=== PATIENT | female | born 1970 | race Caucasian/White ===

== ENCOUNTER 2016-09-07 07:19 | Day surgery (SDC) | payer BC ==
[~2016-09-07] VITALS: Ht 170.2 cm; Wt 109.5 kg
[~2016-09-07 07:19] MED LIST: BENA10TA48 PO; CARI350T PO; ERGO500014 PO; GABA-528 PO; HYDR12.58 PO; IBUP-1542 PO; LORA1TAB PO; MAG355OR15 PO; METF500T4 PO; METO-429 PO; OXYC30TA PO; TOPI-44 PO
[2016-09-07 08:11] VITALS: Ht 170.2 cm; Wt 109.5 kg
[2016-09-07] MEDS ORDERED: PROPOFOL 40 ML ONE (08:37)
[2016-09-07] MEDS ORDERED: LIDOCAINE 2% (SDV) 5 ML INJ ONE (08:37)
[2016-09-07 09:35] VITALS: BP 134/75; PULSE 58; RESP 18
--- NOTE | 2016-09-07 10:13 | GILP ---
DATE OF PROCEDURE: 09/07/2016 PROCEDURE: Esophagogastroduodenoscopy. SURGEON: Brandon Chacon MD PREOPERATIVE DIAGNOSIS: A patient presenting with a history of chronic abdominal pain unresponsive to omeprazole. Rule out peptic ulcer disease, neoplasm, etc. POSTOPERATIVE DIAGNOSES: 1. Multiple antral erosions. 2. Minimal duodenitis. 3. Multiple gastric body polyps. Biopsies done as follows. DESCRIPTION OF PROCEDURE: After the informed written consent was obtained, the patient was asked to lie on the left lateral side. Intravenous anesthesia was given by anesthesiologist, Dr. Farias. Whe n the patient became somnolent, the Olympus video upper endoscope was introduced into the oropharynx , then into the esophagus. Esophagus showed normal mucosal pattern with no ulcer, no neoplasm. Gas tric body showed multiple polyps at least 3 or 4 of them were noted. Multiple biopsies were obtaine d. The antrum showed evidence of several erosions, they are measuring about 3 mm to 6 mm in size. Multiple biopsies were obtained from the antrum, lesser curvature, and the fundus and the cardia to rule out H. pylori infection. Minimal erythema noted in the postbulbar area of the duodenum, but no ulcer, no other abnormality detected in the duodenum. Scope at this time was withdrawn. No additi onal abnormalities detected and the procedure was terminated. PLAN: Recommend increase the omeprazole to 20 mg p.o. b.i.d. and wait for the pathology report for the H. pylori infection. Dictated By: BRANDON GARCIA/GENA Conf#: [id number] DID#: [id number] CC: JAN ALAS MD; BRANDON CHACON MD;*End*
== END 2016-09-07 12:11 | disposition home or self-care (01) ==
LOC: GIL 07:19
PROVIDERS: ATTEND Internal Medicine Gastroenterology
DX: K29.50 Unspecified chronic gastritis without bleeding (principal); K29.80 Duodenitis without bleeding; K31.7 Polyp of stomach and duodenum; E11.9 Type 2 diabetes mellitus without complications; I10 Essential (primary) hypertension; E66.01 Morbid (severe) obesity due to excess calories; Z68.37 Body mass index [BMI] 37.0-37.9, adult
CPT/HCPCS: 43239; 84703; 88305; 88312; Z7610

== ENCOUNTER 2016-09-15 02:33 | Inpatient (IN) | payer BC ==
[~2016-09-15] VITALS: Ht 167.6 cm; Wt 105.4 kg
[~2016-09-15 02:33] MED LIST changes: -BENA10TA48 PO; -ERGO500014 PO; -GABA-528 PO; -HYDR12.58 PO; -IBUP-1542 PO; -MAG355OR15 PO; -TOPI-44 PO
--- NOTE | 2016-09-15 03:24 | ERA ---
ER Documentation Chief Complaint Date/Time DATE: 09/15/16 TIME: 03:24 Chief Complaint woke up with chest pain/sob x 1 hour ago HPI The patient is a 45-year-old female,presenting to the ER because of sternal chest pain about an hour prior to arrival that wake her up from sleeping. . She had similar symptoms previously, but not with this intensity. She also complained of associated dyspnea. She denies chest pain with exertion or vomiting or diaphoresis. He denies abdominal pain, vomiting, dysuria, diarrhea. She does not smoke does not drink Past medical history: Hypertension, diabetes mellitus, anxiety, chronic neck pain, chronic back pain Past surgical history: Breast implant and left ulnar surgery ROS All systems reviewed and are negative except as per history of present illness. Medications Home Meds Reported Medications Oxycodone Hcl* (IR) (Oxycodone Hcl*) 30 Mg Tablet, 30 MG PO Q12 Y for PAIN, TAB 11/17/15 Lorazepam* (Lorazepam*) 1 Mg Tablet, 1 MG PO BID Y for AGITATION/ANXIETY, TAB 11/17/15 Metformin* (Glucophage*) 500 Mg Tab, 500 MG PO BID 11/17/15 Metoprolol Tartrate* (Lopressor*) 50 Mg Tab, 50 MG PO BID 11/17/15 Carisoprodol* (Soma*) 350 Mg Tablet, 350 MG PO Q8H Y for MUSCLE SPASMS, TAB 08/20/15 Allergies Allergies: Coded Allergies: diphenhydramine (Verified Allergy, Unknown, sob, 09/15/16) PMhx/Soc History of Surgery: Yes (BREAST IMPLANTS, ULNAR NERVE SX) Anesthesia Reaction: No Hx Neurological Disorder: No Hx Respiratory Disorders: No Hx Cardiac Disorders: Yes (HTN) Hx Psychiatric Problems: Yes (ANXIETY) Hx Miscellaneous Medical Probl: No Hx Alcohol Use: No Hx Substance Use: No Hx Tobacco Use: No Physical Exam Vitals Vital Signs Date Time Temp Pulse Resp B/P Pulse Ox O2 Delivery O2 Flow Rate FiO2 09/15/16 03:20 97.9 58 20 132/99 100 Room Air 09/15/16 02:36 97.9 62 20 138/84 99 Physical Exam Const: No acute distress. Head: Atraumatic. Eyes: Normal Conjunctiva. ENT: Normal External Ears, Nose and Mouth. Neck: Full range of motion. No meningismus. Resp: Clear to auscultation bilaterally. Cardio: Regular rate and rhythm, no murmurs. Abd: Soft, non distended, normal bowel sounds, non tender. Skin: No petechiae or rashes. Back: No midline or flank tenderness. Ext: No cyanosis, or edema. Neur: Awake and alert. No focal deficit Psych: Normal Mood and Affect. Result Diagram: 09/15/16 0330 09/15/16 0330 Results 24 hrs Laboratory Tests Test 09/15/16 03:30 09/15/16 04:09 Activated Partial Thromboplast Time 25.1Sec Alanine Aminotransferase (ALT/SGPT) 25IU/L Albumin 4.3g/dl Albumin/Globulin Ratio 1.34 Alkaline Phosphatase 76IU/L Anion Gap 20 Aspartate Amino Transf (AST/SGOT) 12IU/L Basophils # 0.110^3/ul Basophils % 0.6% Blood Urea Nitrogen 12mg/dl Calcium Level 9.3mg/dl Carbon Dioxide Level 26mmol/L Chloride Level 104mmol/L Creatinine 0.80mg/dl Direct Bilirubin 0.00mg/dl Eosinophils # 0.410^3/ul Eosinophils % 3.7% Globulin 3.20g/dl Glucose Level 136mg/dl Hematocrit 38.1% Hemoglobin 11.3g/dl INR International Normalized Ratio 0.97 Indirect Bilirubin 0.1mg/dl Lipase 121U/L Lymphocytes # 2.910^3/ul Lymphocytes % 29.1% Mean Corpuscular Hemoglobin 21.7pg Mean Corpuscular Hemoglobin Concent 29.7g/dl Mean Corpuscular Volume 73.1fl Mean Platelet Volume 10.0fl Monocytes # 0.710^3/ul Monocytes % 6.7% Neutrophils # 6.010^3/ul Neutrophils % 59.4% Nucleated Red Blood Cells # 0.010^3/ul Nucleated Red Blood Cells % 0.0/100WBC Platelet Count 19862^3/UL Potassium Level 3.8mmol/L Prothrombin Time 12.9Sec Prothrombin Time Ratio 1.0 Red Blood Count 5.2110^6/ul Red Cell Distribution Width 15.5% Sodium Level 146mmol/L Total Bilirubin 0.1mg/dl Total Protein 7.5g/dl Troponin I < 0.012ng/ml White Blood Count 10.010^3/ul Bedside Urine Blood 2+ Bedside Urine Glucose (UA) Negative Bedside Urine Ketones (LAB) Trace Bedside Urine Leukocyte Esterase (L Negative Bedside Urine Nitrite (LAB) Negative Bedside Urine Protein (LAB) 1+ Bedside Urine pH (LAB) 5.5 Current Medications Medications (Trade) Dose Ordered Sig/Floridalma Route PRN Reason Start Time Stop Time Status Last Admin Dose Admin Aspirin (Aspirin) 325 mg ONCE ONCE PO 09/15/16 03:30 09/15/16 03:31 DC 09/15/16 03:43 Nitroglycerin (Nitroglycerin 2% Oint) 1 inch ONCE ONCE TD 09/15/16 03:30 09/15/16 03:31 DC IV Flush (NS 3 ml) 3 ml PER PROTOCOL IV 09/15/16 05:30 Lorazepam (Ativan) 0.5 mg Q6H PRN IV ANXIETY 09/15/16 05:30 Ondansetron HCl (Zofran Inj) 4 mg Q6H PRN IV NAUSEA AND/OR VOMITING 09/15/16 05:30 Aspirin (Aspirin) 81 mg DAILY PO 09/15/16 09:00 Nitroglycerin (Nitroglycerin (Sl Tab) 0.4 Mg) 1 tab Q5M PRN SL CHEST PAIN 09/15/16 05:30 Acetaminophen (Tylenol Tab) 650 mg Q6H PRN PO PAIN LEVEL 1-3 OR FEVER 09/15/16 05:30 Morphine Sulfate (morphine) 2 mg Q4H PRN IV PAIN LEVEL 7-10 09/15/16 05:30 Hydromorphone HCl (Dilaudid) 0.5 mg Q4H PRN IV PAIN LEVEL 7-10 09/15/16 05:30 Docusate Sodium (Colace) 100 mg Q12H PRN PO CONSTIPATION 09/15/16 05:30 Famotidine (Pepcid) 20 mg Q12 PO 09/15/16 09:00 Enoxaparin Sodium (Lovenox) 40 mg DAILY SC 09/15/16 09:00 Insulin Aspart (Novolog Insulin Pen) NOVOLOG *MILD* ALGORITHM WITH MEALS BEDTIME SC 09/15/16 08:00 Miscellaneous Information (* Miscellaneous Pharmacy Order) HYPOGLYCEMIA PROTOCOL w... ONCE ONCE XX 09/15/16 05:30 09/15/16 05:31 DC Miscellaneous Information (* Miscellaneous Pharmacy Order) Discontinue Glyburide, Glipizide,... ONCE ONCE XX 09/15/16 05:30 09/15/16 05:31 DC Miscellaneous Information (* Miscellaneous Pharmacy Order) Discontinue all previ... ONCE ONCE XX 09/15/16 05:30 09/15/16 05:31 DC Carisoprodol (Soma) 350 mg Q8H PRN PO MUSCLE SPASMS 09/15/16 05:30 Lorazepam (Ativan) 1 mg BID PRN PO AGITATION/ANXIETY 09/15/16 05:30 Metoprolol Tartrate (Lopressor) 50 mg BID PO 09/15/16 09:00 Oxycodone HCl (Roxicodone) 30 mg Q12H PRN PO PAIN 09/15/16 05:30 Miscellaneous Information 1 ea NOTE XX 09/15/16 05:30 Glucose (Glutose) 15 gm Q15M PRN PO DECREASED GLUCOSE 09/15/16 05:30 Glucose (Glutose) 22.5 gm Q15M PRN PO DECREASED GLUCOSE 09/15/16 05:30 Dextrose (D50w Syringe) 25 ml Q15M PRN IV DECREASED GLUCOSE 09/15/16 05:30 Dextrose (D50w Syringe) 50 ml Q15M PRN IV DECREASED GLUCOSE 09/15/16 05:30 Glucagon (Glucagen) 1 mg Q15M PRN IM DECREASED GLUCOSE 09/15/16 05:30 Glucose (Glutose) 15 gm Q15M PRN BUCCAL DECREASED GLUCOSE 09/15/16 05:30 Procedures/MDM EKG: Read by emergency physician Rate/Rhythm: Normal Sinus Rhythm 59 beats/min QRS, ST, T-waves: No ST elevation, nonspecific T abnormality Impression: Abnormal EKG [place] [id number] Radiology Main Line: [phone] DIAGNOSTIC IMAGING REPORT Patient: ROLY JENNINGS : 1970 Age: 45 Sex: F MR #: [id number] DOS: 09/15/16 0329 Ordering MD: AVTAR BARRY MD Location: E/R Room/Bed: PROCEDURE: CHEST - 1 VIEW CLINICAL INDICATION: 45-year-old female with chest/abdominal pain. TECHNIQUE: A single frontal AP view of the chest was performed portably. The images were reviewed on a PACS workstation. COMPARISON: Chest x-ray February 10, 2016. FINDINGS: The cardiomediastinal silhouette has a normal appearance. There is no evidence for an infiltrate. There is no evidence for congestive heart failure. There is no evidence for pneumothorax. The osseous structures are intact. IMPRESSION: No evidence for active cardiopulmonary disease. .Kyle Anderson MD, MD Date Time Electronically viewed and signed by .Kyle Anderson MD, MD on 09/15/2016 03:57 .M/ CC: AVTAR BARRY MD MEDICAL MAKING DECISION: The patient is a 45-year-old female with multiple cardiac risk factors, presenting with acute chest pain that is concerning for ACS. She was treated with aspirin 325 mg p.o., 1 inch of nitroglycerin ointment with good response. the differential diagnoses considered include but are not limited to acute coronary syndrome, acute myocardial infarction, pericarditis, pulmonary embolism, aortic dissection, pneumonia, pleural effusion , pneumothorax, GERD, chest wall pain. Departure Diagnosis: Primary Impression: Chest pain Additional Impression: Anemia Condition: Stable Comments I discussed the findings with the patient. I discussed the patient with the on- call hospitalist Dr. Sherman who was made aware of the lab, the treatment, the patient condition. The patient is admitted to telemetry at 4:45 AM AVTAR BARRY MD Sep 15, 2016 03:24
[2016-09-15] MEDS ORDERED: ASPIRIN 325 MG TAB PO ONE (03:30)
[2016-09-15] MEDS ORDERED: NITROGLYCERIN 2% 1 GM OINT PKT TD ONE (03:30)
[2016-09-15 03:46] LABS: ADD SCAN DIFF NO
[2016-09-15 03:52] LABS: BASOPHIL # 0.1 10^3/ul (0.0-0.1); BASOPHILS % 0.6 % (0.0-2.0); EOSINOPHILS # 0.4 10^3/ul (0.0-0.5); EOSINOPHILS % 3.7 % (0.0-7.0); HEMATOCRIT 38.1 % (37.0-47.0); HEMOGLOBIN 11.3 g/dl (12.0-16.0); LYMPHOCYTES # 2.9 10^3/ul (0.8-2.9); LYMPHOCYTES % 29.1 % (15.0-51.0); MEAN CORPUSCULAR HEMOGLOBIN 21.7 pg (29.0-33.0); MEAN CORPUSCULAR HGB CONC 29.7 g/dl (32.0-37.0); MEAN CORPUSCULAR VOLUME 73.1 fl (82.0-101.0); MONOCYTE # 0.7 10^3/ul (0.3-0.9); MONOCYTES % 6.7 % (0.0-11.0); NEUTROPHILS % 59.4 % (39.0-77.0); PLATELET COUNT 394 10^3/UL (140-415); RED BLOOD COUNT 5.21 10^6/ul (4.20-5.40); RED CELL DISTRIBUTION WIDTH 15.5 % (11.5-14.5)
--- NOTE | 2016-09-15 03:57 | RADRPT ---
PROCEDURE: CHEST - 1 VIEW CLINICAL INDICATION: 45-year-old female with chest/abdominal pain. TECHNIQUE: A single frontal AP view of the chest was performed portably. The images were reviewed on a PACS workstation. COMPARISON: Chest x-ray February 10, 2016. FINDINGS: The cardiomediastinal silhouette has a normal appearance. There is no evidence for an infiltrate. There is no evidence for congestive heart failure. There is no evidence for pneumothorax. The osseou s structures are intact. IMPRESSION: No evidence for active cardiopulmonary disease. .Kyle Anderson MD, MD Date Time Electronically viewed and signed by .Kyle Anderson MD, on 09/15/2016 03:57 .Deep/
[2016-09-15 04:01] LABS: CHLORIDE 104 mmol/L (97-110)
[2016-09-15 04:02] LABS: ALBUMIN 4.3 g/dl (3.3-4.9); SODIUM 146 mmol/L (135-144)
[2016-09-15 04:03] LABS: INR 0.97; PARTIAL THROMBOPLASTIN TIME 25.1 Sec (25.0-35.0); POTASSIUM 3.8 mmol/L (3.5-5.1); PROTIME 12.9 Sec (12.2-14.2)
[2016-09-15 04:05] LABS: ALANINE AMINOTRANSFERASE 25 IU/L (13-69); ALBUMIN/GLOBULIN RATIO 1.34; ALKALINE PHOSPHATASE 76 IU/L (42-121); ANION GAP 20 (8-16); ASPARTATE AMINO TRANSFERASE 12 IU/L (15-46); BILIRUBIN,INDIRECT 0.1 mg/dl (0-1.1); BILIRUBIN,TOTAL 0.1 mg/dl (0.2-1.3); BLOOD UREA NITROGEN 12 mg/dl (7-20); CALCIUM 9.3 mg/dl (8.4-10.2); CARBON DIOXIDE 26 mmol/L (21-31); GLUCOSE 136 mg/dl (70-220); TOTAL PROTEIN 7.5 g/dl (6.1-8.1)
[2016-09-15 04:07] LABS: URINE BLOOD (Dip) POC 2+ (NEGATIVE)
[2016-09-15 04:18] LABS: TROPONIN-I < 0.012 ng/ml (0.00-0.12)
--- NOTE | 2016-09-15 05:24 | HP ---
Date/Time of Note Date/Time of Note DATE: 09/15/16 TIME: 05:15 Assessment/Plan VTE Prophylaxis VTE Prophylaxis Intervention: LMWH Assessment/Plan Assessment/Plan 45 yo female with past medical history of type II DM, essential hypertension, chronic neck/back pain, obesity, who presents with acute chest pain that started around 1 am. 1. Chest pain - ACS vs other - will admit to telemetry, cycle cardiac markers, check TSH/Mag, ECHO, consult cardio, morphine/oxygen/nitro/aspirin 2. Type II DM - check hgba1c, ISS, hold metformin 3. Essential hypertension - continue with lopressor, aspirin 4. Chronic pain - continue with home meds 5. Anemia - microcytic - check iron panel, monitor hgb 6. obesity - low fat low cholesterol diet 7. GI ppx - pepcid 8. DVT ppx - lovenox answered all of her questions. as per clinical course. this history and physical took greater then 45 minutes to complete HPI/ROS Admit Date/Time Admit Date/Time 09/15/2016, 5:16 am Hx of Present Illness 45 yo female with past medical history of type II DM, essential hypertension, chronic neck/back pain, obesity, who presents with acute chest pain that started around 1 am. The chest pain is substernal, radiating to her back, 9/10 in intensity, pressure like, no alleviating factors, woke her up from sleep, with dizziness. Otherwise denies any shortness of breath, nausea/vomiting/ diarrhea, loss of consciousness, headaches, urinary/bowel irregularities, fevers or chills. She had a previous stress test 2 years that was negative. ED course: Nitropaste/Aspirin ROS 14 point review of systems completed, please refer to HPI for any positive findings PMH/Family/Social Past Medical History obesity, chronic pain Medical History: diabetes, hypertension Past Surgical History breast implants, left ulnar nerve repair Family History Significant Family History: hypertension (mother) Social History Alcohol Use: none Smoking Status: Never smoker Drug Use: none Exam/Review of Systems Vital Signs Vitals Vital Signs Date Time Temp Pulse Resp B/P Pulse Ox O2 Delivery O2 Flow Rate FiO2 09/15/16 03:20 97.9 58 20 132/99 100 Room Air Exam Exam Gen Jag: mild to moderate distress 2/2 to chest pain, AAOx4 HEENT: NC/AT, PERRLA, EOMI, no pharyngeal erythema, no tonsillar exudates, no lymphadenopathy, no JVD, no carotid bruits NECK: supple, no thyromegaly THORAX: symmetrical, no obvious deformities CV: S1S2, RRR, no M/G/R Lungs: CTAB no W/C/R/R Abd: soft, NT/ND, +BS, no rebound, no guarding, neg HSM EXT: trace bilateral lower extremity edema, no ecchymosis, no clubbing, FROM Neuro: CN II-XII grossly intact, no focal deficits Psych: good mentation, alert and oriented, good mood and affect Skin: C/D/I Labs Result Diagram: 09/15/1632909/15/16329 Procedures Procedures CXR IMPRESSION: No evidence for active cardiopulmonary disease. EKG: ST depressions in V3-V5 PRO DURAN MD Sep 15, 2016 05:24
[2016-09-15] MEDS ORDERED: NACL 0.9% 3 ML SYG IV SCH (05:30)
[2016-09-15] MEDS ORDERED: GLUCOSE GEL 15 GRAM TUBE PO PRN ×2 (05:30)
[2016-09-15] MEDS ORDERED: DEXTROSE 50% 50 ML SYRINGE IV PRN ×2 (05:30)
[2016-09-15] MEDS ORDERED: CARISOPRODOL 350 MG TAB PO PRN (05:30)
[2016-09-15] MEDS ORDERED: oxyCODONE 15 MG TAB PO PRN (05:30)
[2016-09-15] MEDS ORDERED: GLUCOSE GEL 15 GRAM TUBE BUCCAL PRN (05:30)
[2016-09-15] MEDS ORDERED: HYDROmorphONE 1 MG/ML SYG IV PRN (05:30)
[2016-09-15] MEDS ORDERED: ACETAMINOPHEN 325 MG TAB PO PRN (05:30)
[2016-09-15] MEDS ORDERED: GLUCAGON 1 MG INJ IM PRN (05:30)
[2016-09-15] MEDS ORDERED: NITROGLYCERIN (SL) 0.4 MG TAB SL PRN (05:30)
[2016-09-15] MEDS ORDERED: ONDANSETRON 4 MG INJ IV PRN (05:30)
[2016-09-15] MEDS ORDERED: DOCUSATE SODIUM 100 MG CAP PO PRN (05:30)
[2016-09-15] MEDS ORDERED: LORAZEPAM 0.5 MG TAB PO ONE (06:00)
[2016-09-15 06:05] LABS: CHOL/HDL RATIO 4.4 RATIO
[2016-09-15 06:12] LABS: CK-MB 0.67 ng/ml (0.0-2.4)
[2016-09-15 06:20] LABS: CREATINE KINASE 50 IU/L (23-200)
[2016-09-15 06:43] LABS: TROPONIN-I < 0.010 ng/ml (0.00-0.12)
[2016-09-15 07:26] LABS: IRON 25 ug/dl (35-150)
[2016-09-15 07:35] LABS: TOTAL IRON BINDING CAPACITY 443 ug/dl (241-421)
[2016-09-15] MEDS: INSULIN ASPART [NOVOLOG] 3 ML PEN SC SCH ×4 (07:59→21:00)
[2016-09-15] MEDS: morphine 2 MG INJ IV PRN ×4 (08:03→20:28)
[2016-09-15] MEDS: ASPIRIN 81 MG TAB PO SCH (08:37)
[2016-09-15] MEDS: FAMOTIDINE 20 MG TAB PO SCH ×2 (08:37→20:28)
[2016-09-15] MEDS: METOPROLOL 50 MG TAB PO SCH ×2 (08:38→20:28)
[2016-09-15] MEDS: ENOXAPARIN 40 MG/0.4 ML SYG SC SCH (08:38)
[2016-09-15 09:27] LABS: THYROID STIMULATING HORMONE 3.27 MIU/L (0.465-4.680)
[2016-09-15] MEDS: LORAZEPAM 2 MG INJ IV PRN (11:28)
[2016-09-15 12:02] LABS: CREATINE KINASE 54 IU/L (23-200)
[2016-09-15 12:15] LABS: CK-MB < 0.22 ng/ml (0.0-2.4)
[2016-09-15 12:17] LABS: TROPONIN-I < 0.010 ng/ml (0.00-0.12)
[2016-09-15 15:39] VITALS: TEMP 97.9
[2016-09-15 16:26] VITALS: PULSE 87
[2016-09-15 16:51] VITALS: Ht 167.6 cm; Wt 105.4 kg
[2016-09-15] MEDS ORDERED: INFLUENZA VIRUS VACCINE 0.5 ML SYG IM* ONE (17:30)
--- NOTE | 2016-09-15 18:35 | CONS ---
DATE OF ADMISSION: 09/15/2016 DATE OF CONSULTATION: 09/15/2016 TYPE OF CONSULTATION: Cardiology REFERRING PHYSICIAN: Lew Sherman MD REASON FOR EVALUATION: Chest pain. HISTORY OF PRESENT ILLNESS: Ms. Emmanuel is a 45-year-old woman with history of hypertension, diabetes , history of chronic pain, history of gastrointestinal problems status post recent EGD, who comes to the hospital now for evaluation of chest pains. The patient said that she was at home, she had a b ad headache with her neck radiating and then had an episode of chest pain which she woke drenched in sweat. The patient did not appear to rule in for acute myocardial infarction. Her EKG shows some bradycardia with nonspecific ST-T changes; however, the patient does have some risk factors for isaura nary artery disease. It appears that she is diabetic with some hypertension. Diabetes, was diagnos ed a year ago. She said she had a stress test 2 years ago at [facility], which was maybe abn ormal, but she was unsure of the result. As such, I think it would not be unreasonable to risk stra tify the patient with a stress test. We will await for results of the echo and we will facilitate t he stress test shortly. PAST MEDICAL HISTORY: Hypertension, dyslipidemia, history of chronic back pain, anemia, obesity, G I problems. ALLERGIES: NO KNOWN DRUG ALLERGIES. SOCIAL HISTORY: The patient does not smoke, does not drink, does not use any drugs. FAMILY HISTORY: Negative for sudden cardiac or premature coronary artery disease. MEDICATIONS: Here include 1. Aspirin 81 mg once a day. 2. Famotidine. 3. Metoprolol 50 mg p.o. b.i.d. 4. Insulin on a sliding scale. 5. Acetaminophen. 6. Lorazepam. REVIEW OF SYSTEMS: CONSTITUTIONAL: No fevers, no chills, no recent weight changes. HEENT: No changes in vision or hearing. CARDIAC: No chest pain reported now. RESPIRATORY: Shortness of breath, acute on chronic. GASTROINTESTINAL: No nausea, vomiting, diarrhea, constipation. GENITOURINARY: No dysuria, hematuria. NEUROLOGIC: No focal neurologic deficits. HEMATOLOGIC: History of anemia. PSYCHIATRIC: history of psychiatric illness. PHYSICAL EXAMINATION: VITAL SIGNS: Temperature is 97.9, heart rate 87, blood pressure 147/73. GENERAL: A well-nourished woman in no acute distress, alert and oriented x3, aware of her condition . HEAD: Normocephalic, atraumatic. Eyes anicteric. NECK: Supple. JVD 6 to 7 cm. There is no lymphadenopathy or thyromegaly. HEART: Regular with soft holosystolic murmur. PMI is nondisplaced. I do not hear an S3. LUNGS: Coarse at the bases. ABDOMEN: Distended, bowel sounds are present. There is no hepatosplenomegaly. GENITOURINARY: Grossly intact. EXTREMITIES: No clubbing, cyanosis, trace edema. LABORATORY DATA: White blood cell count is 10.0, hemoglobin 11.3, platelets 394. Creatinine is 0.8 , sodium 146. Troponin is negative at 0.01. ASSESSMENT AND PLAN: 1. Chest pain. The patient has chest pain. She has risk factors for coronary artery disease inclu ding diabetes and hypertension. She had possibly abnormal stress test before. We will her no w with a stress test. We will for now continue to rule out. 2. Hypertension. Blood pressure well controlled. Continue medical therapy. We will optimize as n ecessary. 3. Obesity. Significant weight loss advised. 4. Diabetes. Continue diabetic optimization and care. 5. Abnormal EKG, bradycardia with nonspecific changes. The patient is on beta brice. We will fo llow expectantly. I would like to thank Dr. Sherman for referring this patient for my evaluation. Dictated By: TEE VELIZ MD ML/NTS Conf#: [id number] DID#: [id number]
[2016-09-15 20:00] VITALS: BP 130/72; PULSE 81; RESP 18
[2016-09-15] MEDS: LORAZEPAM 1 MG TAB PO PRN (20:28)
[2016-09-15 20:33] VITALS: PULSE 80
[2016-09-16] VITALS (12 sets, daily range): BP systolic 113–137; BP diastolic 56–88; PULSE 57–80; RESP 16–18
[2016-09-16] MEDS: morphine 2 MG INJ IV PRN ×6 (01:06→21:38)
[2016-09-16] MEDS: LORAZEPAM 1 MG TAB PO PRN ×2 (06:21→20:44)
[2016-09-16 07:23] LABS: ADD SCAN DIFF NO
[2016-09-16 07:26] LABS: BASOPHIL # 0.1 10^3/ul (0.0-0.1); BASOPHILS % 0.6 % (0.0-2.0); EOSINOPHILS # 0.4 10^3/ul (0.0-0.5); EOSINOPHILS % 5.2 % (0.0-7.0); HEMATOCRIT 33.8 % (37.0-47.0); HEMOGLOBIN 10.1 g/dl (12.0-16.0); LYMPHOCYTES # 2.5 10^3/ul (0.8-2.9); LYMPHOCYTES % 29.8 % (15.0-51.0); MEAN CORPUSCULAR HEMOGLOBIN 21.9 pg (29.0-33.0); MEAN CORPUSCULAR HGB CONC 29.9 g/dl (32.0-37.0); MEAN CORPUSCULAR VOLUME 73.2 fl (82.0-101.0); MONOCYTE # 0.7 10^3/ul (0.3-0.9); MONOCYTES % 7.9 % (0.0-11.0); NEUTROPHIL # 4.6 10^3/ul (1.6-7.5); NEUTROPHILS % 55.9 % (39.0-77.0); PLATELET COUNT 348 10^3/UL (140-415); RED BLOOD COUNT 4.62 10^6/ul (4.20-5.40); WHITE BLOOD COUNT 8.3 10^3/ul (4.8-10.8)
[2016-09-16 07:50] LABS: CREATININE 0.75 mg/dl (0.44-1.00)
[2016-09-16] MEDS: INSULIN ASPART [NOVOLOG] 3 ML PEN SC SCH ×4 (07:55→20:45)
[2016-09-16] MEDS: ASPIRIN 81 MG TAB PO SCH (09:25)
[2016-09-16] MEDS: FAMOTIDINE 20 MG TAB PO SCH ×2 (09:26→20:44)
[2016-09-16] MEDS: METOPROLOL 50 MG TAB PO SCH ×2 (09:26→20:44)
[2016-09-16] MEDS: ENOXAPARIN 40 MG/0.4 ML SYG SC SCH (09:31)
[2016-09-16] MEDS: morphine (ER) 15 MG TAB PO SCH ×2 (11:00→20:44)
--- NOTE | 2016-09-16 11:03 | PN ---
Date/Time of Note Date/Time of Note DATE: 09/16/16 TIME: 11:02 Assessment/Plan VTE Prophylaxis VTE Prophylaxis Intervention: LMWH Lines/Catheters IV Catheter Type (from Nrsg): Saline Lock Assessment/Plan Assessment/Plan 1. Chest pain - ACS vs other - will admit to telemetry, cycle cardiac markers, check TSH/Mag, ECHO, consult cardio, morphine/oxygen/nitro/aspirin 2. Type II DM - check hgba1c, ISS, hold metformin 3. Essential hypertension - continue with lopressor, aspirin 4. Chronic pain - continue with home meds 5. Anemia - microcytic - check iron panel, monitor hgb 6. obesity - low fat low cholesterol diet 7. GI ppx - pepcid 8. DVT ppx - lovenox Subjective 24 Hr Interval Summary Free Text/Dictation c/o chest pain requiring IV morphine every 4 hr, BP stable,s/p Cardiology consult by Exam/Review of Systems Vital Signs Vitals Vital Signs Date Time Temp Pulse Resp B/P Pulse Ox O2 Delivery O2 Flow Rate FiO2 09/16/16 08:15 69 09/16/16 07:31 98.0 18 120/59 98 09/16/16 04:32 Room Air Intake and Output 09/15/16 09/15/16 09/16/16 15:00 23:00 07:00 Intake Total 700 ml Balance 700 ml Exam Constitutional: alert Psych: no complaints Head: normocephalic Neck: supple Respiratory: clear to auscultation Cardiovascular: regular rate and rhythm Gastrointestinal: soft Musculoskeletal: nl extremities to inspection Extremities: normal pulses Neurological: SCALEMAKER II-XII intact Results Result Diagram: 09/16/16 0610 09/16/16 0607 Results 24 hrs Laboratory Tests Test 09/15/16 11:42 09/15/16 12:24 09/15/16 17:11 09/15/16 22:06 Creatine Kinase 54 Creatine Kinase Index 0.4 Creatinine Kinase MB (Mass) < 0.22 Troponin I < 0.010 Bedside Glucose 87 117 156 Test 09/16/16 06:07 09/16/16 06:10 09/16/16 07:25 Anion Gap 15 Blood Urea Nitrogen 12 Calcium Level 9.0 Carbon Dioxide Level 27 Chloride Level 104 Creatinine 0.75 Glucose Level 104 Potassium Level 4.0 Sodium Level 142 Basophils # 0.1 Basophils % 0.6 Eosinophils # 0.4 Eosinophils % 5.2 Hematocrit 33.8 L Hemoglobin 10.1 L Lymphocytes # 2.5 Lymphocytes % 29.8 Mean Corpuscular Hemoglobin 21.9 L Mean Corpuscular Hemoglobin Concent 29.9 L Mean Corpuscular Volume 73.2 L Mean Platelet Volume 10.0 Monocytes # 0.7 Monocytes % 7.9 Neutrophils # 4.6 Neutrophils % 55.9 Nucleated Red Blood Cells # 0.0 Nucleated Red Blood Cells % 0.0 Platelet Count 348 Red Blood Count 4.62 Red Cell Distribution Width 15.0 H White Blood Count 8.3 Bedside Glucose 117 Medications Medications Current Medications Lorazepam (Ativan) 0.5 mg Q6H PRN IV ANXIETY Last administered on 09/15/16 11: 28; Admin Dose 0.5 MG; Start 09/15/16 at 05:30 Ondansetron HCl (Zofran Inj) 4 mg Q6H PRN IV NAUSEA AND/OR VOMITING Last administered on 09/15/16 16:31; Admin Dose 4 MG; Start 09/15/16 at 05:30 Aspirin (Aspirin) 81 mg DAILY PO Last administered on 09/16/16 09:25; Admin Dose 81 MG; Start 09/15/16 at 09:00 Nitroglycerin (Nitroglycerin (Sl Tab) 0.4 Mg) 1 tab Q5M PRN SL CHEST PAIN; Start 09/15/16 at 05:30 Acetaminophen (Tylenol Tab) 650 mg Q6H PRN PO PAIN LEVEL 1-3 OR FEVER; Start at 05:30 Morphine Sulfate (morphine) 2 mg Q4H PRN IV PAIN LEVEL 7-10 Last administered on 09/16/16 09:26; Admin Dose 2 MG; Start 09/15/16 at 05:30 Hydromorphone HCl (Dilaudid) 0.5 mg Q4H PRN IV PAIN LEVEL 7-10; Start 09/15/16 at 05:30 Docusate Sodium (Colace) 100 mg Q12H PRN PO CONSTIPATION; Start 09/15/16 at 05: 30 Famotidine (Pepcid) 20 mg Q12 PO Last administered on 09/16/16 09:26; Admin Dose 20 MG; Start 09/15/16 at 09:00 Enoxaparin Sodium (Lovenox) 40 mg DAILY SC Last administered on 09/16/16 09:31 ; Admin Dose 40 MG; Start 09/15/16 at 09:00 Carisoprodol (Soma) 350 mg Q8H PRN PO MUSCLE SPASMS; Start 09/15/16 at 05:30 Lorazepam (Ativan) 1 mg BID PRN PO AGITATION/ANXIETY Last administered on 06:21; Admin Dose 1 MG; Start 09/15/16 at 05:30 Metoprolol Tartrate (Lopressor) 50 mg BID PO Last administered on 09/16/16 09: 26; Admin Dose 50 MG; Start 09/15/16 at 09:00 Oxycodone HCl (Roxicodone) 30 mg Q12H PRN PO PAIN; Start 09/15/16 at 05:30 Miscellaneous Information 1 ea NOTE XX ; Start 09/15/16 at 05:30 Glucose (Glutose) 15 gm Q15M PRN PO DECREASED GLUCOSE; Start 09/15/16 at 05:30 Glucose (Glutose) 22.5 gm Q15M PRN PO DECREASED GLUCOSE; Start 09/15/16 at 05: 30 Dextrose (D50w Syringe) 25 ml Q15M PRN IV DECREASED GLUCOSE; Start 09/15/16 at 05:30 Dextrose (D50w Syringe) 50 ml Q15M PRN IV DECREASED GLUCOSE; Start 09/15/16 at 05:30 Glucagon (Glucagen) 1 mg Q15M PRN IM DECREASED GLUCOSE; Start 09/15/16 at 05:30 Glucose (Glutose) 15 gm Q15M PRN BUCCAL DECREASED GLUCOSE; Start 09/15/16 at 05 :30 Morphine Sulfate (Ms Contin (Er)) 15 mg BID PO ; Start 09/16/16 at 11:00 CHIDI CARDENAS MD Sep 16, 2016 11:03
--- NOTE | 2016-09-16 14:45 | CONS ---
Date/Time of Note Date/Time of Note DATE: 09/16/16 TIME: 14:43 Assessment/Plan Assessment/Plan Additional Assessment/Plan 1. Chest pain. The patient has chest pain. She has risk factors for coronary artery disease including diabetes and hypertension. She had possibly abnormal stress test before. Catherine SPECT planned for tomorrow. 2. Hypertension. Blood pressure well controlled. Continue medical therapy. We will optimize as necessary. STABLE. 3. Obesity. Significant weight loss advised. 4. Diabetes. Continue diabetic optimization and care. 5. Abnormal EKG, bradycardia with nonspecific changes. The patient is on beta brice. We will follow expectantly. Will review ECHO. Consultation Date/Type/Reason Admit Date/Time Sep 15, 2016 at 04:31 Initial Consult Date 24 HR Interval Summary Free Text/Dictation NO acute cahnge - no CP now. Stres test planned for tomorrow. ROS: No fever, no chills, no nausea, no vomiting, no diarrhea/constipation No recent weight changes No chest pain, no PND, no orthopnea No dizziness, blurred vision No thirst, no heat or cold intolerance Exam/Review of Systems Vital Signs Vitals Vital Signs Date Time Temp Pulse Resp B/P Pulse Ox O2 Delivery O2 Flow Rate FiO2 09/16/16 12:30 58 09/16/16 11:32 98.0 18 122/79 98 09/16/16 04:32 Room Air Intake and Output 09/15/16 09/15/16 09/16/16 15:00 23:00 07:00 Intake Total 700 ml Balance 700 ml Exam General: WN/WD/NAD, AOx 3 HEENT: Unicetric/atraumatic/EOMI (follow commands) NECK: JVD elevated, no thyromegaly Lymph: no lymphadenopathy HEART: regular with no S3, II/ systolic murmur at apex LUNGS: Coarse sounds ABD: soft, NT, ND, +BS : Intact Neuro: non focal SKIN: chronic changes EXT: trace edema Results Result Diagram: 09/16/16 0610 09/16/16 0607 Results 24 hrs Laboratory Tests Test 09/15/16 17:11 09/15/16 22:06 09/16/16 06:07 09/16/16 06:10 Bedside Glucose 117 156 Anion Gap 15 Blood Urea Nitrogen 12 Calcium Level 9.0 Carbon Dioxide Level 27 Chloride Level 104 Creatinine 0.75 Glucose Level 104 Potassium Level 4.0 Sodium Level 142 Basophils # 0.1 Basophils % 0.6 Eosinophils # 0.4 Eosinophils % 5.2 Hematocrit 33.8 L Hemoglobin 10.1 L Lymphocytes # 2.5 Lymphocytes % 29.8 Mean Corpuscular Hemoglobin 21.9 L Mean Corpuscular Hemoglobin Concent 29.9 L Mean Corpuscular Volume 73.2 L Mean Platelet Volume 10.0 Monocytes # 0.7 Monocytes % 7.9 Neutrophils # 4.6 Neutrophils % 55.9 Nucleated Red Blood Cells # 0.0 Nucleated Red Blood Cells % 0.0 Platelet Count 348 Red Blood Count 4.62 Red Cell Distribution Width 15.0 H White Blood Count 8.3 Test 09/16/16 07:25 09/16/16 11:47 Bedside Glucose 117 113 Medications Medications Current Medications Lorazepam (Ativan) 0.5 mg Q6H PRN IV ANXIETY Last administered on 09/15/16 11: 28; Admin Dose 0.5 MG; Start 09/15/16 at 05:30 Ondansetron HCl (Zofran Inj) 4 mg Q6H PRN IV NAUSEA AND/OR VOMITING Last administered on 09/15/16 16:31; Admin Dose 4 MG; Start 09/15/16 at 05:30 Aspirin (Aspirin) 81 mg DAILY PO Last administered on 09/16/16 09:25; Admin Dose 81 MG; Start 09/15/16 at 09:00 Nitroglycerin (Nitroglycerin (Sl Tab) 0.4 Mg) 1 tab Q5M PRN SL CHEST PAIN; Start 09/15/16 at 05:30 Acetaminophen (Tylenol Tab) 650 mg Q6H PRN PO PAIN LEVEL 1-3 OR FEVER; Start at 05:30 Morphine Sulfate (morphine) 2 mg Q4H PRN IV PAIN LEVEL 7-10 Last administered on 09/16/16 13:46; Admin Dose 2 MG; Start 09/15/16 at 05:30 Hydromorphone HCl (Dilaudid) 0.5 mg Q4H PRN IV PAIN LEVEL 7-10; Start 09/15/16 at 05:30 Docusate Sodium (Colace) 100 mg Q12H PRN PO CONSTIPATION; Start 09/15/16 at 05: 30 Famotidine (Pepcid) 20 mg Q12 PO Last administered on 09/16/16 09:26; Admin Dose 20 MG; Start 09/15/16 at 09:00 Enoxaparin Sodium (Lovenox) 40 mg DAILY SC Last administered on 09/16/16 09:31 ; Admin Dose 40 MG; Start 09/15/16 at 09:00 Carisoprodol (Soma) 350 mg Q8H PRN PO MUSCLE SPASMS; Start 09/15/16 at 05:30 Lorazepam (Ativan) 1 mg BID PRN PO AGITATION/ANXIETY Last administered on 06:21; Admin Dose 1 MG; Start 09/15/16 at 05:30 Metoprolol Tartrate (Lopressor) 50 mg BID PO Last administered on 09/16/16 09: 26; Admin Dose 50 MG; Start 09/15/16 at 09:00 Oxycodone HCl (Roxicodone) 30 mg Q12H PRN PO PAIN; Start 09/15/16 at 05:30 Miscellaneous Information 1 ea NOTE XX ; Start 09/15/16 at 05:30 Glucose (Glutose) 15 gm Q15M PRN PO DECREASED GLUCOSE; Start 09/15/16 at 05:30 Glucose (Glutose) 22.5 gm Q15M PRN PO DECREASED GLUCOSE; Start 09/15/16 at 05: 30 Dextrose (D50w Syringe) 25 ml Q15M PRN IV DECREASED GLUCOSE; Start 09/15/16 at 05:30 Dextrose (D50w Syringe) 50 ml Q15M PRN IV DECREASED GLUCOSE; Start 09/15/16 at 05:30 Glucagon (Glucagen) 1 mg Q15M PRN IM DECREASED GLUCOSE; Start 09/15/16 at 05:30 Glucose (Glutose) 15 gm Q15M PRN BUCCAL DECREASED GLUCOSE; Start 09/15/16 at 05 :30 Morphine Sulfate (Ms Contin (Er)) 15 mg BID PO ; Start 09/16/16 at 11:00 TEE VELIZ MD Sep 16, 2016 14:45
[2016-09-17] VITALS (11 sets, daily range): BP systolic 110–137; BP diastolic 58–83; PULSE 59–77; RESP 14–20
[2016-09-17] MEDS: morphine 2 MG INJ IV PRN ×4 (01:36→16:46)
[2016-09-17 06:52] LABS: ADD SCAN DIFF NO
[2016-09-17 07:05] LABS: BASOPHILS % 0.4 % (0.0-2.0); EOSINOPHILS # 0.4 10^3/ul (0.0-0.5); EOSINOPHILS % 4.3 % (0.0-7.0); HEMATOCRIT 36.4 % (37.0-47.0); HEMOGLOBIN 10.7 g/dl (12.0-16.0); LYMPHOCYTES # 2.5 10^3/ul (0.8-2.9); LYMPHOCYTES % 26.7 % (15.0-51.0); MEAN CORPUSCULAR HEMOGLOBIN 21.4 pg (29.0-33.0); MEAN CORPUSCULAR HGB CONC 29.4 g/dl (32.0-37.0); MEAN CORPUSCULAR VOLUME 72.7 fl (82.0-101.0); MEAN PLATELET VOLUME 10.2 fl (7.4-10.4); MONOCYTE # 0.8 10^3/ul (0.3-0.9); MONOCYTES % 8.9 % (0.0-11.0); NEUTROPHIL # 5.5 10^3/ul (1.6-7.5); NEUTROPHILS % 59.2 % (39.0-77.0); PLATELET COUNT 384 10^3/UL (140-415); RED BLOOD COUNT 5.01 10^6/ul (4.20-5.40); RED CELL DISTRIBUTION WIDTH 15.2 % (11.5-14.5); WHITE BLOOD COUNT 9.3 10^3/ul (4.8-10.8)
[2016-09-17 07:10] LABS: INR 0.99; PROTIME 13.1 Sec (12.2-14.2)
[2016-09-17 07:11] LABS: PARTIAL THROMBOPLASTIN TIME 26.9 Sec (25.0-35.0)
[2016-09-17 07:14] LABS: POTASSIUM 4.1 mmol/L (3.5-5.1)
[2016-09-17 07:16] LABS: CREATININE 0.7 mg/dl (0.44-1.00)
[2016-09-17] MEDS: INSULIN ASPART [NOVOLOG] 3 ML PEN SC SCH ×3 (07:52→17:55)
[2016-09-17] MEDS: ASPIRIN 81 MG TAB PO SCH (08:23)
[2016-09-17] MEDS: FAMOTIDINE 20 MG TAB PO SCH (08:23)
[2016-09-17] MEDS: METOPROLOL 50 MG TAB PO SCH (08:24)
[2016-09-17] MEDS: ENOXAPARIN 40 MG/0.4 ML SYG SC SCH (08:36)
[2016-09-17] MEDS: morphine (ER) 15 MG TAB PO SCH (08:37)
[2016-09-17] MEDS ORDERED: REGADENOSON 0.4 MG/5 ML SYG ONE (09:23)
--- NOTE | 2016-09-17 09:53 | CONS ---
Date/Time of Note Date/Time of Note DATE: 09/17/16 TIME: 09:51 Assessment/Plan Assessment/Plan Additional Assessment/Plan 1. Chest pain. The patient has chest pain. She has risk factors for coronary artery disease including diabetes and hypertension. She had possibly abnormal stress test before. Catherine SPECT planned today. 2. Hypertension. Blood pressure well controlled. Continue medical therapy. We will optimize as necessary. STABLE. 3. Obesity. Significant weight loss advised. 4. Diabetes. Continue diabetic optimization and care. 5. Abnormal EKG, bradycardia with nonspecific changes. The patient is on beta brice. We will follow expectantly. ECHO Ef 60%. Consultation Date/Type/Reason Admit Date/Time Sep 15, 2016 at 04:31 24 HR Interval Summary Free Text/Dictation NO acute events. BP stable - stress test planned today. ROS: No fever, no chills, no nausea, no vomiting, no diarrhea/constipation No recent weight changes No chest pain, no PND, no orthopnea No dizziness, blurred vision No thirst, no heat or cold intolerance Exam/Review of Systems Vital Signs Vitals Vital Signs Date Time Temp Pulse Resp B/P Pulse Ox O2 Delivery O2 Flow Rate FiO2 09/17/16 08:15 66 09/17/16 07:50 98.4 14 113/61 94 Room Air Intake and Output 09/16/16 09/16/16 09/17/16 15:00 23:00 07:00 Intake Total 1140 ml Output Total 1500 ml Balance -360 ml Exam General: WN/WD/NAD, AOx 3 HEENT: Unicetric/atraumatic/EOMI (follow commands) NECK: JVD elevated, no thyromegaly Lymph: no lymphadenopathy HEART: regular with no S3, II/ systolic murmur at apex LUNGS: Coarse sounds ABD: soft, NT, ND, +BS : Intact Neuro: non focal SKIN: chronic changes EXT: trace edema Results Result Diagram: 09/17/16 0558 09/17/16 0558 Results 24 hrs Laboratory Tests Test 09/16/16 11:47 09/16/16 17:13 09/16/16 20:42 09/17/16 05:58 Bedside Glucose 113 115 157 Activated Partial Thromboplast Time 26.9 Anion Gap 18 H Basophils # 0.0 Basophils % 0.4 Blood Urea Nitrogen 15 Calcium Level 9.0 Carbon Dioxide Level 25 Chloride Level 102 Creatinine 0.70 Eosinophils # 0.4 Eosinophils % 4.3 Glucose Level 108 Hematocrit 36.4 L Hemoglobin 10.7 L INR International Normalized Ratio 0.99 Lymphocytes # 2.5 Lymphocytes % 26.7 Mean Corpuscular Hemoglobin 21.4 L Mean Corpuscular Hemoglobin Concent 29.4 L Mean Corpuscular Volume 72.7 L Mean Platelet Volume 10.2 Monocytes # 0.8 Monocytes % 8.9 Neutrophils # 5.5 Neutrophils % 59.2 Nucleated Red Blood Cells # 0.0 Nucleated Red Blood Cells % 0.0 Platelet Count 384 Potassium Level 4.1 Prothrombin Time 13.1 Prothrombin Time Ratio 1.0 Red Blood Count 5.01 Red Cell Distribution Width 15.2 H Sodium Level 141 White Blood Count 9.3 Test 09/17/16 07:41 Bedside Glucose 112 Medications Medications Current Medications Lorazepam (Ativan) 0.5 mg Q6H PRN IV ANXIETY Last administered on 09/15/16 11: 28; Admin Dose 0.5 MG; Start 09/15/16 at 05:30 Ondansetron HCl (Zofran Inj) 4 mg Q6H PRN IV NAUSEA AND/OR VOMITING Last administered on 09/15/16 16:31; Admin Dose 4 MG; Start 09/15/16 at 05:30 Aspirin (Aspirin) 81 mg DAILY PO Last administered on 09/17/16 08:23; Admin Dose 81 MG; Start 09/15/16 at 09:00 Nitroglycerin (Nitroglycerin (Sl Tab) 0.4 Mg) 1 tab Q5M PRN SL CHEST PAIN; Start 09/15/16 at 05:30 Acetaminophen (Tylenol Tab) 650 mg Q6H PRN PO PAIN LEVEL 1-3 OR FEVER; Start at 05:30 Morphine Sulfate (morphine) 2 mg Q4H PRN IV PAIN LEVEL 7-10 Last administered on 09/17/16 05:42; Admin Dose 2 MG; Start 09/15/16 at 05:30 Hydromorphone HCl (Dilaudid) 0.5 mg Q4H PRN IV PAIN LEVEL 7-10; Start 09/15/16 at 05:30 Docusate Sodium (Colace) 100 mg Q12H PRN PO CONSTIPATION; Start 09/15/16 at 05: 30 Famotidine (Pepcid) 20 mg Q12 PO Last administered on 09/17/16 08:23; Admin Dose 20 MG; Start 09/15/16 at 09:00 Enoxaparin Sodium (Lovenox) 40 mg DAILY SC Last administered on 09/17/16 08:36 ; Admin Dose 40 MG; Start 09/15/16 at 09:00 Carisoprodol (Soma) 350 mg Q8H PRN PO MUSCLE SPASMS; Start 09/15/16 at 05:30 Lorazepam (Ativan) 1 mg BID PRN PO AGITATION/ANXIETY Last administered on 20:44; Admin Dose 1 MG; Start 09/15/16 at 05:30 Metoprolol Tartrate (Lopressor) 50 mg BID PO Last administered on 09/17/16 08: 24; Admin Dose 50 MG; Start 09/15/16 at 09:00 Oxycodone HCl (Roxicodone) 30 mg Q12H PRN PO PAIN; Start 09/15/16 at 05:30 Miscellaneous Information 1 ea NOTE XX ; Start 09/15/16 at 05:30 Glucose (Glutose) 15 gm Q15M PRN PO DECREASED GLUCOSE; Start 09/15/16 at 05:30 Glucose (Glutose) 22.5 gm Q15M PRN PO DECREASED GLUCOSE; Start 09/15/16 at 05: 30 Dextrose (D50w Syringe) 25 ml Q15M PRN IV DECREASED GLUCOSE; Start 09/15/16 at 05:30 Dextrose (D50w Syringe) 50 ml Q15M PRN IV DECREASED GLUCOSE; Start 09/15/16 at 05:30 Glucagon (Glucagen) 1 mg Q15M PRN IM DECREASED GLUCOSE; Start 09/15/16 at 05:30 Glucose (Glutose) 15 gm Q15M PRN BUCCAL DECREASED GLUCOSE; Start 09/15/16 at 05 :30 Morphine Sulfate (Ms Contin (Er)) 15 mg BID PO ; Start 09/16/16 at 11:00 TEE VELIZ MD Sep 17, 2016 09:53
--- NOTE | 2016-09-17 12:43 | RADRPT ---
PROCEDURE: Lexiscan myocardial perfusion study CLINICAL INDICATION: 45 -year-old patient complaining of chest pain. TECHNIQUE: Lexiscan 0.4 mg intravenously separate acquisition gated myocardial perfusion SPECT usi ng Tc 99m Myoview 32.7 mCi intravenously at stress and Tc-99m Myoview, 10.8 mCi intravenously at res t was performed using the rest/stress sequence. Poststress Myoview SPECT images were obtained in th e supine position. COMPARISON: No prior studies. FINDINGS: Perfusion images reveal no evidence of perfusion defects. Lexiscan post stress gated SPECT images demonstrate no wall motion abnormalities. IMPRESSION: 1. Normal study with no evidence of perfusion defects or wall motion abnormalities. 2. The left ventricle ejection fraction at stress is 69%. A call report was made to Dr. Olvera at 12:40 p.m. on September 17, 2016. RPTAT: HH .Mary Barroso MD, Date Time Electronically viewed and signed by .Mary Barroso MD, on 09/17/2016 12:43 .L/
--- NOTE | 2016-09-17 14:35 | ECORPT ---
DATE OF SERVICE: [facility] CARDIAC STRESS TEST REFERRING PHYSICIAN: Dr. Sherman REASON FOR EVALUATION: Chest pain. DESCRIPTION: The patient came into the heart station. She was in a fasting condition. Blood press ure was 135/83. She tolerated the injection well. There was some tachycardiac, but no evidence of ischemia. The imaging portion will be dictated separate. Dictated By: TEE VELIZ MD ML/GENA Conf#: [id number] DID#: [id number]
[2016-09-17] MEDS: LORAZEPAM 2 MG INJ IV PRN (15:24)
--- NOTE | 2016-09-17 16:07 | PDOCDIS ---
Discharge Instructions CONDITION Patient Condition: Good HOME CARE INSTRUCTIONS: Special Diet: DIABETIC ACTIVITY: Activity Restrictions: No Restrictions FOLLOW UP/APPOINTMENTS Appointments F/U WITH YOUR PCP IN 1-2 WEEKS RAJAT NGUYEN Sep 17, 2016 16:07
[2016-09-17] MEDS ORDERED: FERR325T5 PO (16:57)
--- NOTE | 2016-09-18 04:49 | DS ---
DATE OF ADMISSION: 09/15/2016 DATE OF DISCHARGE: 09/17/2016 DISCHARGE DIAGNOSES: 1. Chest pain, likely GI related. The patient is status post recent EGD that showed gastritis. Th e patient is to start taking the PPI which she was prescribed but has not picked up yet. Lexiscan w as negative. 2. Chronic pain secondary to a work accident. 3. Obesity. The patient advised to lose weight. 4. Microcytic anemia. The patient found to have iron deficiency. We would discharge with p.oDaly cruz. HOSPITAL COURSE: The patient is a 45-year-old female with a history of obesity, chronic pain, type 2 diabetes on metformin, and hypertension. The patient recently had an EGD with Dr. Chacon that did show minimal duodenitis, multiple gastric body polyps. The patient was given Omeprazole 20 mg b.i. d., but she had not filled out the prescription as of yet and continued to have pain in the upper ep igastrium. The patient was seen by cardiology, and a stress test was done that was negative for any significant occlusions. EF was normal. The patient was noted to be microcytic, TIBC was elevated, and the patient has iron deficiency anemia. The patient's pain was likely secondary to gastritis, and she was told that she should fill her prescription that was given to her by Dr. Chacon. She und erstood. On the day of discharge, the patient's vitals, labs, and physical exam were stable. She h ad no further acute complaints. Questions were answered. CONDITION ON DISCHARGE: Stable. DISPOSITION: To home. MEDICATIONS: The patient will continue her usual home medications. She was given ferrous sulfate 3 25 mg p.o. b.i.d. FOLLOWUP: The patient is to follow up with her PCP in 1 to 2 weeks. Greater than 30 minutes was spent coordinating discharge of patient. Dictated By: RAJAT MADRIGAL/NTS Conf#: [id number] DID#: [id number]
--- NOTE | 2016-09-19 16:10 | RADRPT ---
Echocardiogram Report Patient Name: ROLY JENNINGS Gender: Female Date: 1970 Study Date: 16-Sep-2016 Engineering Clerk: Eduardo Crowder RDCS Location: E Ref. Physician: PRO DURAN Quality: Good Procedures: Transthoracic echocardiogram with complete 2D, M-Mode, and doppler examination. Indications: Chest Pain. 2D/M Mode Doppler Measurement Value Normal Ranges Measurement Value Normal Ranges LVIDd 2D 3.6 3.5 - 5.6 cm AV Peak Rodolfo 1.3 m/sec LVIDs 2D 2.9 2.1 - 4.1 cm AV Peak PG 7.1 mmHg LVPWd 2D 1.2 0.6 - 1.1 cm LVOT Peak Rodolfo 1.0 m/sec IVSd 2D 1.3 0.6 - 1.1 cm LVOT Peak PG 3.8 mmHg AoR Diam 2D 1.8 2.0 - 3.7 cm MV E Peak Rodolfo 0.8 m/sec EDV 2D 54.8 cm3 MV A Peak Rodolfo 0.6 m/sec ESV 2D 23.6 cm3 MV E/A 1.3 LA Dimen 2D 3.0 2.3 - 4.0 cm MV Decel Time 218 msec MV Decel Arroyo 4 MV E/A 1.3 Findings Left Ventricle: Normal left ventricular systolic function. Normal left ventricular cavity size. Normal left ventricular wall thickness. Ejection fraction is visually estimated at 55 %. Right Ventricle: Normal right ventricular size. Normal right ventricular systolic function. Left Atrium: The left atrium is normal in size. Right Atrium: The right atrium is normal in size. Mitral Valve: Mild mitral annular calcification. Trace mitral regurgitation. Aortic Valve: Normal appearance of the aortic valve. No significant aortic stenosis or insufficiency. Tricuspid Valve: Normal appearance and function of the tricuspid valve with trace physiologic regurgitation. Normal right ventricular systolic pressure. Pulmonic Valve: Normal pulmonic valve appearance. Pericardium: Normal pericardium with no significant pericardial effusion. Aorta: Normal aortic root. IVC: Normal size and normal respiratory collapse consistent with normal right atrial pressure. Conclusions 1.Normal left ventricular systolic function. Normal left ventricular cavity size. Normal left ventricular wall thickness. Ejection fraction is visually estimated at 55 %. 2.Mild mitral annular calcification. Trace mitral regurgitation. 3.Normal appearance of the aortic valve. No significant aortic stenosis or insufficiency. 4.Normal appearance and function of the tricuspid valve with trace physiologic regurgitation. Normal right ventricular systolic pressure. Electronically Signed By: Manuel Lee 19-Sep-2016 16:10:03 -0800 Patient Name: ROLY JENNINGS Study Date: 16-Sep-2016 [id number]
== END 2016-09-17 18:30 | disposition home or self-care (01) | DRG 392 ==
LOC: E/R 02:33 → TEL 04:31
PROVIDERS: ADMIT Student in an Organized Health Care Education/Training Program; ATTEND Student in an Organized Health Care Education/Training Program
DX: K29.70 Gastritis, unspecified, without bleeding (principal); I10 Essential (primary) hypertension; E66.9 Obesity, unspecified; D50.9 Iron deficiency anemia, unspecified; E11.9 Type 2 diabetes mellitus without complications; G89.29 Other chronic pain; Z68.37 Body mass index [BMI] 37.0-37.9, adult; Z79.84 Long term (current) use of oral hypoglycemic drugs
CPT/HCPCS: 36415; 71010; 78452; 80048; 80053; 80061; 81003; 82550; 82553; 82728; 82962; 83036; 83540; 83690; 83735; 84443; 84484; 85025; 85610; 85730; 90686; 93005; 93017; 93306; 96372; 96374; 96375; 96376; A9500; A9505; J1650; J1815; J2060; J2270; J2405; J2785

== ENCOUNTER 2016-11-11 02:50 | Emergency (ER) | payer BC ==
[~2016-11-11] VITALS: Ht 167.6 cm; Wt 98.5 kg
[~2016-11-11 02:50] MED LIST changes: +FERR325T5 PO
[2016-11-11 02:59] VITALS: Ht 167.6 cm; Wt 98.5 kg
[2016-11-11 04:11] LABS: URINE BLOOD (Dip) POC Negative (NEGATIVE)
[2016-11-11 04:26] LABS: ADD SCAN DIFF NO
[2016-11-11 04:30] LABS: BASOPHILS % 0.5 % (0.0-2.0); EOSINOPHILS # 0.5 10^3/ul (0.0-0.5); EOSINOPHILS % 5.8 % (0.0-7.0); HEMATOCRIT 37.8 % (37.0-47.0); HEMOGLOBIN 11.1 g/dl (12.0-16.0); LYMPHOCYTES # 2.5 10^3/ul (0.8-2.9); LYMPHOCYTES % 30.1 % (15.0-51.0); MEAN CORPUSCULAR HEMOGLOBIN 21.5 pg (29.0-33.0); MEAN CORPUSCULAR HGB CONC 29.4 g/dl (32.0-37.0); MEAN CORPUSCULAR VOLUME 73.3 fl (82.0-101.0); MEAN PLATELET VOLUME 10.4 fl (7.4-10.4); MONOCYTE # 0.7 10^3/ul (0.3-0.9); MONOCYTES % 8.4 % (0.0-11.0); NEUTROPHIL # 4.6 10^3/ul (1.6-7.5); PLATELET COUNT 352 10^3/UL (140-415); RED BLOOD COUNT 5.16 10^6/ul (4.20-5.40); RED CELL DISTRIBUTION WIDTH 14.9 % (11.5-14.5); WHITE BLOOD COUNT 8.4 10^3/ul (4.8-10.8)
[2016-11-11 04:42] LABS: ALANINE AMINOTRANSFERASE 49 IU/L (13-69); ALBUMIN 4.1 g/dl (3.3-4.9); ALKALINE PHOSPHATASE 77 IU/L (42-121); ANION GAP 10 (8-16); ASPARTATE AMINO TRANSFERASE 24 IU/L (15-46); BILIRUBIN,INDIRECT 0.3 mg/dl (0-1.1); BILIRUBIN,TOTAL 0.3 mg/dl (0.2-1.3); BLOOD UREA NITROGEN 7 mg/dl (7-20); CALCIUM 9.4 mg/dl (8.4-10.2); CARBON DIOXIDE 26 mmol/L (21-31); CHLORIDE 108 mmol/L (97-110); CREATININE 0.77 mg/dl (0.44-1.00); D-DIMER 729.65 ng/ml (<460); GLUCOSE 106 mg/dl (70-220); POTASSIUM 3.4 mmol/L (3.5-5.1); SODIUM 141 mmol/L (135-144); TOTAL PROTEIN 7.5 g/dl (6.1-8.1)
[2016-11-11 04:58] LABS: TROPONIN-I < 0.012 ng/ml (0.00-0.12)
[2016-11-11] MEDS ORDERED: IOHEXOL 300MG/ML 150 ML BTL ONE (05:30)
[2016-11-11] MEDS ORDERED: SOD CHLORIDE 0.9% 100 ML ONE (05:30)
--- NOTE | 2016-11-11 05:42 | ERD ---
ER Documentation Chief Complaint Date/Time DATE: 11/11/16 TIME: 05:40 Chief Complaint S/P GASTRIC SLEEVE SX LAST MONTH CHEST WALL, NECK AND BACK PAIN WITH SOB HPI 46-year-old female presents in emergency department for complaints of mid chest pain radiating to neck and back area which shortness of breath started today. Patient described the chest pain as sharp pain, 6/10 scale, accompanied other pain in the neck and the back area. Patient had a history of gastric sleeve surgery done 1 month ago. Patient complains of dyspnea on times. Patient denies any dizziness. Patient denies any fever or chills. Patient denies any cough. Patient did not take any medications to help with symptoms. ROS All systems reviewed and are negative except as per history of present illness. Medications Home Meds Active Scripts Tramadol HCl (Tramadol HCl) 50 Mg Tablet, 50 MG PO Q4 Y for SEVERE PAIN LEVEL 7- 10, #20 TAB Prov:BRITANY ATKINSON NP 11/11/16 Omeprazole* (Omeprazole*) 20 Mg Capsule., 20 MG PO DAILY, #30 Prov:BRITANY ATKINSON NP 11/11/16 Magaldrate/Simethicone* (Mylanta*) 355 Ml Susp, 30 ML PO QID Y for GASTROINTESTINAL UPSET, #1 BOTTLE Prov:BRITANY ATKINSON NP 11/11/16 Ferrous Sulfate (Ferrous Sulfate) 325 Mg Tablet., 325 MG PO BID WITH MEALS for 30 Days Prov:RAJAT NGUYEN 09/17/16 Reported Medications Oxycodone Hcl* (IR) (Oxycodone Hcl*) 30 Mg Tablet, 30 MG PO Q12 Y for PAIN, TAB 11/17/15 Lorazepam* (Lorazepam*) 1 Mg Tablet, 1 MG PO BID Y for AGITATION/ANXIETY, TAB 11/17/15 Metformin* (Glucophage*) 500 Mg Tab, 500 MG PO BID 11/17/15 Metoprolol Tartrate* (Lopressor*) 50 Mg Tab, 50 MG PO BID 11/17/15 Carisoprodol* (Soma*) 350 Mg Tablet, 350 MG PO Q8H Y for MUSCLE SPASMS, TAB 08/20/15 Allergies Allergies: Coded Allergies: diphenhydramine (Verified Allergy, Unknown, sob, 09/15/16) PMhx/Soc History of Surgery: Yes (BILAT BREAST IMPLANTS, GASTRIC SLEEVE, ULNAR NERVE SX) Anesthesia Reaction: No Hx Neurological Disorder: Yes (NERVE PAIN IN EXTREMETIES, NEUROPATHY) Hx Respiratory Disorders: No Hx Cardiac Disorders: Yes (HTN) Hx Psychiatric Problems: Yes (ANXIETY, CHRONIC PAIN) Hx Miscellaneous Medical Probl: No Hx Alcohol Use: No Hx Substance Use: No Hx Tobacco Use: No Smoking Status: Never smoker FmHx Family History: No coronary disease, No diabetes, No other Physical Exam Vitals Vital Signs Date Time Temp Pulse Resp B/P Pulse Ox O2 Delivery O2 Flow Rate FiO2 11/11/16 02:59 96.8 75 20 161/95 98 Physical Exam GENERAL: The patient is well developed and appropriate for usual state of health, in no apparent distress. CHEST: Clear to auscultation bilaterally. There are no rales, wheezes or rhonchi. HEART: Regular rate and rhythm. No murmurs, clicks, rubs or gallops. No S3 or S4. ABDOMEN: Soft, nontender and nondistended. Good bowel sounds. No rebound or guarding. No gross peritonitis. No gross organomegaly or masses. No Wharton sign or McBurney point tenderness. BACK: No midline or flank tenderness. EXTREMITIES: Equal pulses bilaterally. There is no peripheral clubbing, cyanosis or edema. No focal swelling or erythema. Full range of motion. Grossly neurovascularly intact. NEURO: Alert and oriented. Cranial nerves 2-12 intact. Motor strength in all 4 extremities with 5/5 strength. Sensation grossly intact. Normal speech and gait. SKIN: There is no apparent rash or petechia. The skin is warm and dry. HEMATOLOGIC AND LYMPHATIC: There is no evidence of excessive bruising or lymphedema. No gross cervical, axillary, or inguinal lymphadenopathy. Result Diagram: 11/11/16 0406 11/11/16 0406 Results 24 hrs Laboratory Tests Test 11/11/16 04:06 11/11/16 04:11 White Blood Count 8.410^3/ul Red Blood Count 5.1610^6/ul Hemoglobin 11.1g/dl Hematocrit 37.8% Mean Corpuscular Volume 73.3fl Mean Corpuscular Hemoglobin 21.5pg Mean Corpuscular Hemoglobin Concent 29.4g/dl Red Cell Distribution Width 14.9% Platelet Count 72187^3/UL Mean Platelet Volume 10.4fl Neutrophils % 55.0% Lymphocytes % 30.1% Monocytes % 8.4% Eosinophils % 5.8% Basophils % 0.5% Nucleated Red Blood Cells % 0.0/100WBC Neutrophils # 4.610^3/ul Lymphocytes # 2.510^3/ul Monocytes # 0.710^3/ul Eosinophils # 0.510^3/ul Basophils # 0.010^3/ul Nucleated Red Blood Cells # 0.010^3/ul D-Dimer 729.65ng/ml D-Dimer Comment Sodium Level 141mmol/L Potassium Level 3.4mmol/L Chloride Level 108mmol/L Carbon Dioxide Level 26mmol/L Anion Gap 10 Blood Urea Nitrogen 7mg/dl Creatinine 0.77mg/dl Glucose Level 106mg/dl Calcium Level 9.4mg/dl Total Bilirubin 0.3mg/dl Direct Bilirubin 0.00mg/dl Indirect Bilirubin 0.3mg/dl Aspartate Amino Transf (AST/SGOT) 24IU/L Alanine Aminotransferase (ALT/SGPT) 49IU/L Alkaline Phosphatase 77IU/L Troponin I < 0.012ng/ml Total Protein 7.5g/dl Albumin 4.1g/dl Globulin 3.40g/dl Albumin/Globulin Ratio 1.20 Bedside Urine pH (LAB) 5.5 Bedside Urine Protein (LAB) 1+ Bedside Urine Glucose (UA) Negative Bedside Urine Ketones (LAB) Negative Bedside Urine Blood Negative Bedside Urine Nitrite (LAB) Negative Bedside Urine Leukocyte Esterase (L Negative Current Medications Medications (Trade) Dose Ordered Sig/Floridalma Route PRN Reason Start Time Stop Time Status Last Admin Dose Admin IV Flush 10 ml 10 ml STK-MED ONCE .ROUTE 11/11/16 05:30 11/11/16 05:31 DC 11/11/16 05:59 Sodium Chloride (NS) 100 ml @ ud STK-MED ONCE .ROUTE 11/11/16 05:30 11/11/16 05:31 DC 11/11/16 05:59 Iohexol (Omnipaque 300mg/ ml) 150 ml STK-MED ONCE .ROUTE 11/11/16 05:30 11/11/16 05:31 DC 11/11/16 06:00 EKG was done, read by me and is normal sinus rhythm at a rate of 65, normal axis , there is no ST changes or changes in the EKG that indicates any cardiac emergencies at this time. Patient's EKG was also reviewed by Dr. Garcia. Impression: no acute findings on EKG PROCEDURE: CHEST - 1 VIEW CLINICAL INDICATION: 46-year-old female with chest pain. TECHNIQUE: A single frontal AP portable view of the chest was performed. The images were reviewed on a PACS workstation. COMPARISON: Chest x-ray September 15, 2016. FINDINGS: The cardiomediastinal silhouette has a normal appearance. There is no evidence for an infiltrate. There is no evidence for congestive heart failure. There is no evidence for pneumothorax. The osseous structures are intact. IMPRESSION: No evidence for active cardiopulmonary disease. .Kyle Anderson MD, MD Date Time Electronically viewed and signed by .Kyle Anderson MD, MD on 11/11/2016 06:00 .M/ CC: BRITANY ATKINSON NP Procedures/MDM Medical Decision Making: Patient's chest pain atypical at this time, at this time, d-dimer is elevated, CT angiogram of the chest pending at this time, will be signed out to STEVE Lindsey. There is low suspicion for cardiopulmonary emergencies at this time. Patient has low risk factors. EKG is normal, there is no changes in the EKG that indicates cardiac emergencies. Chest X-ray does not show cardiopulmonary emergencies at this time. There is low suspicion for aortic aneurysm, myocardial infarction, pneumothorax, pleural effusion, or any other cardiopulmonary emergencies at this time. Troponin is negative. D Dimer is slightly elevated, can be many embolism, pending results of the CT angiogram of the chest. If negative RX for Omeprazole, Tramadol and Mylanta was given. Departure Diagnosis: Primary Impression: Atypical chest pain Condition: Stable Patient Instructions: Chest Pain, Uncertain Cause BRITANY ATKINSON NP Nov 11, 2016 05:42
[2016-11-11] MEDS ORDERED: TRAM50TA2 PO (05:54)
[2016-11-11] MEDS ORDERED: MAG-19 PO (05:54)
[2016-11-11] MEDS ORDERED: OMEP20CA16 PO (05:54)
--- NOTE | 2016-11-11 06:01 | RADRPT ---
PROCEDURE: CHEST - 1 VIEW CLINICAL INDICATION: 46-year-old female with chest pain. TECHNIQUE: A single frontal AP portable view of the chest was performed. The images were reviewed on a PACS workstation. COMPARISON: Chest x-ray September 15, 2016. FINDINGS: The cardiomediastinal silhouette has a normal appearance. There is no evidence for an infiltrate. There is no evidence for congestive heart failure. There is no evidence for pneumothorax. The osseou s structures are intact. IMPRESSION: No evidence for active cardiopulmonary disease. .Kyle Anderson MD, MD Date Time Electronically viewed and signed by .Kyle Anderson MD, on 11/11/2016 06:00 .M/
--- NOTE | 2016-11-11 07:00 | RADRPT ---
PROCEDURE: CTA CHEST WITH CONTRAST CLINICAL INDICATION: 46-year-old male with chest pain and shortness of breath. TECHNIQUE: The study was performed utilizing a [employer] VCT 64-slice CT scanner. Direct axi al sections were obtained from the thoracic inlet through the chest to the upper abdomen with a bolu s injection of 105 cc of Omnipaque-300 nonionic contrast material. Sagittal, coronal and maximal int ensity projections re-formations were obtained. One or more of the following dose reduction techniqu es were utilized: automated exposure control, adjustment of the mA and/or kV according to patient's size or use of iterative reconstruction technique. The images were reviewed on a PACS workstation. CTD/vol = 66.9 mGy; Total Exam DLP = 729.0 mGy-cm. COMPARISON: None. FINDINGS: The aorta is without aneurysmal dilatation or dissection. There are small lymph nodes seen within th e mediastinum which are not pathologic by size criteria. The central pulmonary arteries are without evidence for filling defect to suggest pulmonary embolus or thrombus. There is no evidence for an in filtrate. No abnormal soft tissue masses or nodular densities are visualized. There are small anteri or osteophytes within the mid thoracic spine. Bilateral breast implants are present. Scans through the upper abdomen reveals that the upper liver has diffuse decreased density consisten t with fatty infiltration. The partially visualized gallbladder is without calcified stones or signi ficant wall thickening. There is evidence for prior gastric bypass surgery. There are several dive rticula seen within the partially visualized transverse colon without surrounding inflammatory lovelace es. The adrenal glands have a normal appearance. The upper kidneys are functional and are without e vidence for obstruction. IMPRESSION: 1. No CTA evidence for thoracic aortic aneurysm/dissection or central pulmonary embolus. 2. Prior gastric bypass surgery. 3. Partially visualized transverse colon diverticulosis. 4. Bilateral breast implants. 5. Small anterior osteophytes mid thoracic spine. .Kyle Anderson MD, Date Time Electronically viewed and signed by .Kyle Anderson MD, MD on 11/11/2016 07:00 .M/
--- NOTE | 2016-11-11 07:13 | QN ---
Documentation Comment Patient signed out to me by Leela Atkinson NP pending CTA results. CTA negative for PE. Patient discharged per Leela Atkinson NP instructions. PROCEDURE: CTA CHEST WITH CONTRAST CLINICAL INDICATION: 46-year-old male with chest pain and shortness of breath. TECHNIQUE: The study was performed utilizing a GE [employer] VCT 64-slice CT scanner. Direct axial sections were obtained from the thoracic inlet through the chest to the upper abdomen with a bolus injection of 105 cc of Omnipaque- 300 nonionic contrast material. Sagittal, coronal and maximal intensity projections re-formations were obtained. One or more of the following dose reduction techniques were utilized: automated exposure control, adjustment of the mA and/or kV according to patient's size or use of iterative reconstruction technique. The images were reviewed on a PACS workstation. CTD/vol = 66.9 mGy; Total Exam DLP = 729.0 mGy-cm. COMPARISON: None. FINDINGS: The aorta is without aneurysmal dilatation or dissection. There are small lymph nodes seen within the mediastinum which are not pathologic by size criteria. The central pulmonary arteries are without evidence for filling defect to suggest pulmonary embolus or thrombus. There is no evidence for an infiltrate. No abnormal soft tissue masses or nodular densities are visualized. There are small anterior osteophytes within the mid thoracic spine. Bilateral breast implants are present. Scans through the upper abdomen reveals that the upper liver has diffuse decreased density consistent with fatty infiltration. The partially visualized gallbladder is without calcified stones or significant wall thickening. There is evidence for prior gastric bypass surgery. There are several diverticula seen within the partially visualized transverse colon without surrounding inflammatory changes. The adrenal glands have a normal appearance. The upper kidneys are functional and are without evidence for obstruction. IMPRESSION: 1. No CTA evidence for thoracic aortic aneurysm/dissection or central pulmonary embolus. 2. Prior gastric bypass surgery. 3. Partially visualized transverse colon diverticulosis. 4. Bilateral breast implants. 5. Small anterior osteophytes mid thoracic spine. .Kyle Anderson MD, Date Time Electronically viewed and signed by .Kyle Anderson MD, on 11/11/2016 07:00 .M/ CC: LEELA ATKINSON NP, HELEN X. NP Nov 11, 2016 07:13
[2016-11-11 07:20] VITALS: BP 122/61; PULSE 61; RESP 20
== END 2016-11-11 07:28 | disposition home or self-care (01) ==
LOC: FTE 02:50
DX: R07.89 Other chest pain (principal); I10 Essential (primary) hypertension; E11.9 Type 2 diabetes mellitus without complications; Z79.84 Long term (current) use of oral hypoglycemic drugs
CPT/HCPCS: 36415; 71010; 71275; 80053; 81003; 84484; 85025; 85378; 93005; 99285; Q9967; Z7610